=== PATIENT | male | born 1960 | race Caucasian/White ===

== ENCOUNTER → 2018-10-13 | Day surgery (SDC) | payer BC ==
[~2018-10-13] MED LIST: Lactated Ringers 1,000 ML IV SCH; Propofol 200 MG/20 ML SDV IV ONE
[2018-10-13 11:01] VITALS: BP 115/68
--- NOTE | 2018-10-16 09:52 | OR ---
DATE OF OPERATION: 10/13/2018 PREOPERATIVE DIAGNOSIS: 1. CHRONIC GASTROESOPHAGEAL REFLUX DISEASE. 2. HISTORY OF POLYPS. POSTOPERATIVE DIAGNOSIS: 1. CHRONIC GASTROESOPHAGEAL REFLUX DISEASE. 2. HISTORY OF POLYPS. SURGEON: Jus Nava MD PROCEDURE: 1. ESOPHAGOGASTRODUODENOSCOPY WITH POLYP REMOVAL X3. 2. FULL-LENGTH DIAGNOSTIC COLONOSCOPY. ANESTHESIA: MAC via [employer]. COMPLICATIONS: None. SPECIMEN: Fundal polyps x3. FINDINGS: 1. Full-length EGD. 2. Fundal polyposis. 3. Spontaneous GERD without esophagitis, stricturing, or Edwards's changes. 4. Full-length colonoscopy. 5. Mild sigmoid diverticulosis. 6. No polyp recurrence. RECOMMENDATIONS: Ongoing symptomatic treatment of GERD, routine colonoscopy in 10 years. INDICATIONS: The patient has had two prior colonoscopies with polyps removed. He is due for a followup in that regard. He also has been having some ongoing issues with reflux and so we elected to proceed with both upper and lower endoscopy. DESCRIPTION OF PROCEDURE: The patient was prepped and draped, placed in the left lateral decubitus position. A lubricated Olympus gastroscope was inserted over a bit, advanced to cricopharyngeus area, and easily intubated in the esophagus. The esophageal lining was benign in its entire course. The Z-line was crisp at 39 cm. There were no signs of esophagitis, stricturing, ulceration, or Edwards's changes. No hernia. There was some occasional spontaneous reflux. The scope was advanced into the stomach through the pylorus and into the second portion of the duodenum. This and the duodenal bulb were benign. The scope was brought back into the stomach and retroflexed. The upper fundus and cardia were benign. No signs of any peptic ulcer disease. Further straightening showed no lesions in the antrum. The patient does have fundal polyposis, and we took three of the larger polyps out without any problem. One was suctioned into a trap, the other two were removed via forceps. It came through the scope nicely. Resolution of bleeding from all three polyp removal sites was spontaneous. Air was then suctioned from the stomach and the scope was removed without complication. A lubricated Olympus colonoscope was then inserted and easily advanced to the cecum. Direct visualization of the ileocecal valve and appendiceal orifice was accomplished. The bowel prep was excellent. Upon withdrawal of the scope, throughout the entire length of the colon, I could find no signs of polyps, mass, ulceration, or bleeding sites. No vascular abnormalities or signs of colitis. Scattered diverticula again seen throughout the sigmoid area and the rectosigmoid junction, mild in severity. The rectal vault was benign. Retroflexion showed no perianal lesions. Air suctioned and scope removed without complication. MUMTAZ/GARRISON /[id number]
== END ==
LOC: CC.SDS 08:44
PROVIDERS: ATTEND Family Medicine
DX: Z12.11 Encounter for screening for malignant neoplasm of colon (principal); K57.30 Diverticulosis of large intestine without perforation or abscess without bleeding; K21.9 Gastro-esophageal reflux disease without esophagitis; K31.7 Polyp of stomach and duodenum; E78.5 Hyperlipidemia, unspecified; M19.90 Unspecified osteoarthritis, unspecified site; M65.30 Trigger finger, unspecified finger; N40.1 Benign prostatic hyperplasia with lower urinary tract symptoms; N52.9 Male erectile dysfunction, unspecified; Z88.0 Allergy status to penicillin; Z91.030 Bee allergy status; Z91.040 Latex allergy status; Z86.010 Personal history of colon polyps; Z79.899 Other long term (current) drug therapy
CPT/HCPCS: 45378; J2704; J7120